=== PATIENT | male | born 1990 | race Caucasian/White ===

== ENCOUNTER 2019-01-13 13:31 | Emergency (ER) | payer OTHER ==
[~2019-01-13] VITALS: Ht 170.2 cm; Wt 63.6 kg
[~2019-01-13 13:31] MED LIST: ZITHROMAX Z PA250 MG PO
[2019-01-13 13:43] VITALS: BP 121/68; TEMP 98.6
[2019-01-13 17:18] VITALS: PULSE 77
== END 2019-01-13 17:18 | disposition home or self-care (01) ==
LOC: COL.ER 13:31
DX: H57.12 Ocular pain, left eye (principal)

== ENCOUNTER 2019-01-28 17:08 | Emergency (ER) | payer OTHER ==
[~2019-01-28] VITALS: Ht 170.2 cm; Wt 65.9 kg
[2019-01-28 17:16] VITALS: BP 129/76; TEMP 98.3
[2019-01-28] MEDS ORDERED: NAPROSYN500 MG PO (17:54)
[2019-01-28 18:09] VITALS: PULSE 81
== END 2019-01-28 18:09 | disposition home or self-care (01) ==
LOC: COL.ER 17:08
DX: S46.911A Strain of unspecified muscle, fascia and tendon at shoulder and upper arm level, right arm, initial encounter (principal); S20.212A Contusion of left front wall of thorax, initial encounter; F17.210 Nicotine dependence, cigarettes, uncomplicated; W03.XXXA Other fall on same level due to collision with another person, initial encounter; Y92.321 Football field as the place of occurrence of the external cause; Y93.62 Activity, american flag or touch football
CPT/HCPCS: J1885

== ENCOUNTER 2021-08-19 23:55 | Emergency (ER) | payer OTHER ==
[~2021-08-19] VITALS: Ht 170.2 cm; Wt 65.9 kg
[~2021-08-19 23:55] MED LIST changes: +NAPROSYN500 MG PO
[2021-08-20] MEDS ORDERED: PERCOCET 325 MG1 TA2 PO (01:47)
[2021-08-20 02:36] VITALS: BP 112/72; PULSE 70; TEMP 98.3
== END 2021-08-20 02:36 | disposition home or self-care (01) ==
LOC: COL.ER 23:55
DX: T21.19XA Burn of first degree of other site of trunk, initial encounter (principal); T20.12XA Burn of first degree of lip(s), initial encounter; T31.0 Burns involving less than 10% of body surface; F17.210 Nicotine dependence, cigarettes, uncomplicated; X03.0XXA Exposure to flames in controlled fire, not in building or structure, initial encounter
CPT/HCPCS: J1170; J2270; J2405; J7120

== ENCOUNTER 2023-11-25 02:34 | Emergency (ER) | payer SELFPAY ==
[~2023-11-25] VITALS: Ht 170.2 cm; Wt 63.6 kg
[~2023-11-25 02:34] MED LIST changes: +PERCOCET 325 MG1 TA2 PO
[2023-11-25 02:38] VITALS: BP 143/83; TEMP 98
[2023-11-25] MEDS ORDERED: Ketorolac 30 MG/ML VIAL IM ONE (03:00)
[2023-11-25 03:06] VITALS: PULSE 80
== END 2023-11-25 03:07 | disposition home or self-care (01) ==
LOC: COL.ER 02:34
DX: K04.7 Periapical abscess without sinus (principal); F17.200 Nicotine dependence, unspecified, uncomplicated
CPT/HCPCS: J1885